=== PATIENT | male | born 2000 | race Caucasian/White ===

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

== ENCOUNTER 2019-02-28 15:38 | Emergency (ER) | payer BC ==
[~2019-02-28] VITALS: Ht 182.9 cm; Wt 86.4 kg
[2019-02-28 15:42] VITALS: TEMP 97.3
[2019-02-28 16:26] VITALS: BP 137/74
[2019-02-28 16:27] LABS: BASO # 0.1 (0.0-0.2); BASO % 0.7 % (0.0-2.0); EOS % 0.4 % (0-4.0); GRAN # 4.4 (1.4-6.5); GRAN % 64.6 % (42.2-75.2); HEMATOCRIT 40.7 % (36.0-47.0); HEMOGLOBIN 14.5 g/dl (12.5-16.1); LYMPH # 1.5 (1.2-3.4); LYMPH % 22.3 % (20.0-51.0); MEAN CELL VOLUME 84 fl (80.0-95.0); MEAN CORPUSCULAR HEMOGLOBIN 30 pg (26.0-32.0); MEAN CORPUSCULAR HGB CONC 36 g/dl (33.0-37.0); MEAN PLATELET VOLUME 9.8 fl (7.4-10.4); MONO # 0.8 (0.1-0.6); MONO % 11.7 % (1.7-9.3); PLATELET COUNT 287 K/mm3 (130-400); RED BLOOD COUNT 4.83 M/mm3 (4.20-5.60); REDCELL DISTRIBUTION WIDTH-CV 11.8 % (11.5-14.5)
[2019-02-28 16:48] LABS: ALANINE AMINOTRANSFERASE 22 U/L (21-72); ALBUMIN 4.5 gm/dL (3.5-5.0); ALKALINE PHOSPHATASE 57 U/L (50-136); ANION GAP 12 mmol/L (7-16); AST,SGOT 33 U/L (15-37); BILIRUBIN,TOTAL 0.9 mg/dL (0.0-1.0); BLOOD UREA NITROGEN 20 mg/dL (9-20); CARBON DIOXIDE 24 mmol/L (22-30); CHLORIDE 101 mmol/L (98-107); CREATININE, serum 0.96 (0.66-1.25); GLUCOSE 94 mg/dL (74-106); POTASSIUM 3.6 mmol/L (3.4-5.0); SODIUM 138 mmol/L (137-145); TOTAL PROTEIN 7.5 gm/dL (6.4-8.2)
[2019-02-28 16:49] LABS: C-REACTIVE PROTEIN < 0.5 mg/dL (0.0-0.9)
[2019-02-28 17:03] LABS: TROPONIN-I < 0.012 ng/mL (0.000-0.035)
[2019-02-28] MEDS ORDERED: PREDNISONE20 MG PO (18:09)
[2019-02-28 19:09] VITALS: PULSE 67
[2019-02-28] MEDS ORDERED: IPRATROPIUM BROM3 M1 IH (22:37)
== END 2019-02-28 19:11 | disposition home or self-care (01) ==
LOC: COL.ER 15:38
PROVIDERS: Emergency Medicine
DX: R06.02 Shortness of breath (principal); R06.00 Dyspnea, unspecified
CPT/HCPCS: J7512

== ENCOUNTER 2019-02-28 19:56 | Emergency (ER) | payer BC ==
[~2019-02-28] VITALS: Ht 182.9 cm; Wt 86.4 kg
[~2019-02-28 19:56] MED LIST changes: +PREDNISONE20 MG PO
[2019-02-28 20:03] VITALS: BP 137/68; TEMP 98
[2019-02-28 21:12] LABS: CREATINE KINASE 273 U/L (55-170)
[2019-02-28 21:21] LABS: COLLECTION METHOD CLEAN CATCH
[2019-02-28 21:25] LABS: TROPONIN-I < 0.012 ng/mL (0.000-0.035)
[2019-02-28 21:26] LABS: PH 7 (5-8); SQUAMOUS EPITHELIAL None Seen /hpf; URINE APPEARANCE Clear; URINE BACTERIA None Seen /hpf; URINE BILIRUBIN Negative (NEGATIVE); URINE BLOOD Negative (NEGATIVE); URINE COLOR Straw; URINE GLUCOSE Negative (NEGATIVE); URINE KETONE Negative (NEGATIVE); URINE LEUKOCYTE ESTERASE Negative (NEGATIVE); URINE NITRATE Negative (NEGATIVE); URINE PROTEIN(semi-quant) Negative (NEGATIVE); URINE RBC None Seen /hpf; URINE UROBILINOGEN Negative (NEGATIVE)
[2019-02-28 21:36] LABS: TRICYCLIC ANTIDEPRESS URINE NEGATIVE
[2019-02-28 22:35] VITALS: PULSE 72
[2019-02-28] MEDS ORDERED: IPRATROPIUM BROM3 M1 IH (22:37)
== END 2019-02-28 22:35 | disposition home or self-care (01) ==
LOC: COL.ER 19:56
PROVIDERS: Emergency Medicine
DX: R06.00 Dyspnea, unspecified (principal)
CPT/HCPCS: J7030

== ENCOUNTER → 2019-05-17 | Outpatient (CLI) | payer BC ==
[~2019-05-17] MED LIST changes: +IPRATROPIUM BROM3 M1 IH
== END ==
LOC: COL.PUL 12:25
DX: R06.02 Shortness of breath (principal)
CPT/HCPCS: J7674

== ENCOUNTER 2020-10-09 17:47 | Emergency (ER) | payer BC ==
[~2020-10-09] VITALS: Ht 182.9 cm; Wt 90.9 kg
[2020-10-09 17:57] VITALS: TEMP 97.8
[2020-10-09 19:49] VITALS: BP 153/89; PULSE 68
== END 2020-10-09 19:52 | disposition home or self-care (01) ==
LOC: COL.ER 17:47
DX: T53.5X1A Toxic effect of chlorofluorocarbons, accidental (unintentional), initial encounter (principal); R07.89 Other chest pain

== ENCOUNTER 2021-10-19 00:01 | Emergency (ER) | payer BC ==
[~2021-10-19] VITALS: Ht 182.9 cm; Wt 84.1 kg
[2021-10-19 00:07] VITALS: TEMP 98.3
[2021-10-19 00:45] LABS: BASO # 0.1 K/mm3 (0.0-0.2); BASO % 0.8 % (0.0-2.0); EOS % 0.3 % (0.0-4.0); GRAN # 4.5 K/mm3 (1.4-6.5); GRAN % 58.8 % (42.2-75.2); HEMATOCRIT 44.7 % (42.0-52.0); HEMOGLOBIN 15.7 g/dl (13.5-18.0); LYMPH # 2.4 K/mm3 (1.2-3.4); LYMPH % 31.4 % (20.0-51.0); MEAN CELL VOLUME 83 fl (80.0-100.0); MEAN CORPUSCULAR HEMOGLOBIN 29 pg (27-31); MEAN CORPUSCULAR HGB CONC 35 g/dl (33.0-37.0); MEAN PLATELET VOLUME 9.8 fl (7.4-10.4); MONO # 0.6 K/mm3 (0.1-0.6); MONO % 7.5 % (1.7-9.3); PLATELET COUNT 312 K/mm3 (130-400); RED BLOOD COUNT 5.36 M/mm3 (4.20-5.60); REDCELL DISTRIBUTION WIDTH-CV 11.7 % (11.5-14.5)
[2021-10-19 01:03] LABS: ALANINE AMINOTRANSFERASE 22 U/L (0-55); ALBUMIN 4.8 gm/dL (3.5-5.0); ALKALINE PHOSPHATASE 70 U/L (40-150); ANION GAP 11 mmol/L (7-16); AST,SGOT 19 U/L (5-34); BLOOD UREA NITROGEN 13 mg/dL (9-21); CALCIUM 9.8 mg/dL (8.4-10.2); CARBON DIOXIDE 22 mmol/L (22-29); CHLORIDE 106 mmol/L (98-107); CREATININE, serum 0.92 mg/dL (0.72-1.25); GLUCOSE 101 mg/dL (70-99); POTASSIUM 3.9 mmol/L (3.5-4.5); SODIUM 139 mmol/L (136-145); TOTAL PROTEIN 7.7 gm/dL (6.2-8.1)
[2021-10-19 01:50] LABS: TROPONIN-I < 0.010 ng/mL (0.00-0.033)
[2021-10-19 02:16] VITALS: BP 141/100; PULSE 84
[2021-10-19 02:16] LABS: BILIRUBIN,TOTAL 0.6 mg/dL (0.2-1.2)
== END 2021-10-19 02:12 | disposition home or self-care (01) ==
LOC: COL.ER 00:01
PROVIDERS: Student in an Organized Health Care Education/Training Program
DX: R00.2 Palpitations (principal); R07.89 Other chest pain

== ENCOUNTER 2022-04-23 03:41 | Emergency (ER) | payer BC ==
[~2022-04-23] VITALS: Ht 182.9 cm; Wt 90.9 kg
[2022-04-23 03:42] VITALS: TEMP 98.6
[2022-04-23 04:06] LABS: BASO # 0.1 K/mm3 (0.0-0.2); BASO % 0.6 % (0.0-2.0); EOS # 0.1 K/mm3 (0.0-0.7); EOS % 1.2 % (0.0-4.0); GRAN # 3.3 K/mm3 (1.4-6.5); GRAN % 39.8 % (42.2-75.2); HEMATOCRIT 45.3 % (42.0-52.0); HEMOGLOBIN 15.9 g/dl (13.5-18.0); LYMPH # 4.1 K/mm3 (1.2-3.4); LYMPH % 49.7 % (20.0-51.0); MEAN CELL VOLUME 85 fl (80.0-100.0); MEAN CORPUSCULAR HEMOGLOBIN 30 pg (27-31); MEAN CORPUSCULAR HGB CONC 35 g/dl (33.0-37.0); MEAN PLATELET VOLUME 9.7 fl (7.4-10.4); MONO # 0.7 K/mm3 (0.1-0.6); MONO % 8.2 % (1.7-9.3); PLATELET COUNT 290 K/mm3 (130-400); RED BLOOD COUNT 5.33 M/mm3 (4.20-5.60); REDCELL DISTRIBUTION WIDTH-CV 11.5 % (11.5-14.5)
[2022-04-23 04:41] LABS: ALBUMIN 4.3 gm/dL (3.5-5.0); BILIRUBIN,TOTAL 0.9 mg/dL (0.2-1.2); CALCIUM 9.8 mg/dL (8.4-10.2); CREATININE, serum 0.87 mg/dL (0.72-1.25); POTASSIUM 3.7 mmol/L (3.5-4.5); TOTAL PROTEIN 7.2 gm/dL (6.2-8.1)
[2022-04-23] MEDS ORDERED: PROTONIX 40MG T40 MG PO (06:21)
[2022-04-23 06:26] VITALS: BP 130/94; PULSE 79
== END 2022-04-23 06:26 | disposition home or self-care (01) ==
LOC: COL.ER 03:41
PROVIDERS: Personal Emergency Response Attendant
DX: R10.10 Upper abdominal pain, unspecified (principal); Z28.310 Unvaccinated for COVID-19
CPT/HCPCS: C9113; J7030; Q9967

== ENCOUNTER 2022-07-22 17:45 | Emergency (ER) | payer BC ==
[~2022-07-22] VITALS: Ht 182.9 cm; Wt 90.9 kg
[~2022-07-22 17:45] MED LIST changes: +PROTONIX 40MG T40 MG PO
[2022-07-22 18:01] VITALS: BP 134/77; TEMP 98
[2022-07-22] MEDS ORDERED: ATARAX 25MG25 MG/TAB PO (18:47)
[2022-07-22 18:57] VITALS: PULSE 76
== END 2022-07-22 19:02 | disposition home or self-care (01) ==
LOC: COL.ER 17:45
DX: F41.0 Panic disorder [episodic paroxysmal anxiety] (principal); Z28.310 Unvaccinated for COVID-19

== ENCOUNTER 2023-01-21 10:28 | Emergency (ER) | payer BC ==
[~2023-01-21] VITALS: Ht 180.3 cm; Wt 90.9 kg
[~2023-01-21 10:28] MED LIST changes: +ATARAX 25MG25 MG/TAB PO
[2023-01-21 10:34] VITALS: TEMP 97.7
[2023-01-21 11:25] VITALS: BP 134/67; PULSE 81
== END 2023-01-21 11:25 | disposition home or self-care (01) ==
LOC: COL.ER 10:28
DX: R42 Dizziness and giddiness (principal); I45.10 Unspecified right bundle-branch block; Z28.310 Unvaccinated for COVID-19

== ENCOUNTER 2024-05-27 03:40 | Emergency (ER) | payer SELFPAY ==
[~2024-05-27] VITALS: Ht 180.3 cm; Wt 95.5 kg
[2024-05-27] MEDS ORDERED: methylPREDNISolone Sod Succ 125 MG/2 ML VIAL IV ONE (04:00)
[2024-05-27] MEDS ORDERED: BENADRYL50 MG PO (05:13)
[2024-05-27] MEDS ORDERED: PEPCID 20MG TAB20 MG PO (05:13)
[2024-05-27] MEDS ORDERED: PREDNISONE20 MG PO (05:13)
[2024-05-27] MEDS ORDERED: EPIPEN 2-PAK1 MG/ML IM (05:13)
[2024-05-27 05:32] VITALS: BP 128/86; PULSE 74; TEMP 98.3
== END 2024-05-27 05:32 | disposition home or self-care (01) ==
LOC: COL.ER 03:40
DX: T78.40XA Allergy, unspecified, initial encounter (principal); F17.290 Nicotine dependence, other tobacco product, uncomplicated; X58.XXXA Exposure to other specified factors, initial encounter
CPT/HCPCS: J2919

== ENCOUNTER 2024-08-09 23:01 | Emergency (ER) | payer BC ==
[~2024-08-09] VITALS: Ht 180.3 cm; Wt 95.5 kg
[~2024-08-09 23:01] MED LIST changes: +BENADRYL50 MG PO; +EPIPEN 2-PAK1 MG/ML IM; +PEPCID 20MG TAB20 MG PO
[2024-08-09] MEDS ORDERED: NS 1,000 ML IV ONE (23:15)
[2024-08-09] MEDS ORDERED: Ondansetron 4 MG/2 ML VIAL IV ONE (23:15)
[2024-08-09] MEDS ORDERED: Lidocaine 2% Viscous 15 ML UNIT DOSE MM ONE (23:16)
[2024-08-09 23:28] LABS: BASO # 0.1 K/mm3 (0.0-0.2); BASO % 1.2 % (0.0-2.0); EOS # 0.1 K/mm3 (0.0-0.7); EOS % 1.3 % (0.0-4.0); GRAN # 3.1 K/mm3 (1.4-6.5); GRAN % 40.2 % (42.2-75.2); HEMATOCRIT 45.4 % (42.0-52.0); HEMOGLOBIN 16.3 g/dl (13.5-18.0); LYMPH # 3.6 K/mm3 (1.2-3.4); LYMPH % 46.4 % (20.0-51.0); MEAN CELL VOLUME 84 fl (80.0-100.0); MEAN CORPUSCULAR HEMOGLOBIN 30 pg (27-31); MEAN CORPUSCULAR HGB CONC 36 g/dl (33.0-37.0); MEAN PLATELET VOLUME 9.5 fl (7.4-10.4); MONO # 0.8 K/mm3 (0.1-0.6); MONO % 10.6 % (1.7-9.3); PLATELET COUNT 344 K/mm3 (130-400); RED BLOOD COUNT 5.41 M/mm3 (4.20-5.60); REDCELL DISTRIBUTION WIDTH-CV 11.7 % (11.5-14.5)
[2024-08-09] MEDS ORDERED: Iohexol 300 - 100 ML VIAL IV ONE (23:46)
[2024-08-09 23:48] LABS: ALBUMIN 4.3 g/dL (3.5-5.0); BILIRUBIN,TOTAL 0.6 mg/dL (0.2-1.2); CALCIUM 9.5 mg/dL (8.4-10.2); CREATININE, serum 1.02 mg/dL (0.72-1.25); POTASSIUM 3.6 mEq/L (3.5-4.5); TOTAL PROTEIN 7.1 g/dl (6.2-8.1)
[2024-08-09 23:50] LABS: COLLECTION METHOD CLEAN CATCH
[2024-08-09 23:56] LABS: PH 6.5 (5.0-8.5); URINE APPEARANCE CLEAR (CLEAR/HAZY); URINE BLOOD NEGATIVE (NEGATIVE); URINE COLOR YELLOW (YELLOW); URINE GLUCOSE NEGATIVE (NEGATIVE); URINE KETONE NEGATIVE (NEGATIVE); URINE NITRATE NEGATIVE (NEGATIVE); URINE PROTEIN(semi-quant) NEGATIVE (NEGATIVE); URINE UROBILINOGEN 0.2 E.U/dL (0.2-1.0)
[2024-08-10] MEDS ORDERED: ZOFRAN ODT4 MG PO (00:25)
[2024-08-10] MEDS ORDERED: dexAMETHasone 10 MG/ML VIAL PO ONE (00:30)
[2024-08-10 00:46] VITALS: BP 124/92; PULSE 76; TEMP 98.5
== END 2024-08-10 00:46 | disposition home or self-care (01) ==
LOC: COL.ER 23:01
PROVIDERS: Emergency Medicine
DX: R11.2 Nausea with vomiting, unspecified (principal)
CPT/HCPCS: J1100; J2405; J7030; Q9967